=== PATIENT | male | born 1960 | race Hispanic/Latino ===

== ENCOUNTER 2020-12-31 11:28 | Emergency (ER) | payer OTHER ==
[~2020-12-31 11:28] MED LIST: CIMETIDINE400 MG PO; GABAPENTIN400 MG PO; LEVOTHYROXINE200 MCG PO; LISINOPRIL40 MG PO; METFORMIN HCL1000 MG PO; OMEPRAZOLE40 MG PO; SUCRALFATE1 GM PO; TOUJEO SQ
[2020-12-31 12:55] LABS: BASOPHILS % 0.5 % (0.0-1.0); EOSINOPHILS % 0.3 % (0.0-6.0); HEMATOCRIT 40.6 % (38.2-49.6); HEMOGLOBIN 13.2 g/dL (14.0-18.0); LYMPHOCYTES # (AUTO) 1.2 (1.0-3.2); LYMPHOCYTES % 20.8 % (18.0-39.1); MEAN CORPUSCULAR HEMOGLOBIN 27.4 pg (28-32); MEAN CORPUSCULAR HGB CONC 32.5 g/dL (31-35); MEAN CORPUSCULAR VOLUME 84.2 fL (81-99); MONOCYTES # (AUTO) 0.6 (0.2-0.8); MONOCYTES % 9.8 % (4.4-11.3); NEUTROPHILS % 68.3 % (38.7-80.0); PLATELET COUNT 159 x10e3/uL (140-360); RED BLOOD COUNT 4.82 x10e6/uL (4.3-5.7); RED CELL DISTRIBUTION WIDTH 14.5 % (11.7-14.4)
[2020-12-31 13:03] LABS: INR 1.05; PROTHROMBIN TIME 13.9 seconds (11.9-14.5)
[2020-12-31 13:04] LABS: PARTIAL THROMBOPLASTIN TIME 29.4 seconds (23.8-35.5)
[2020-12-31 13:14] LABS: ALBUMIN 1.8 g/dL (3.5-5.0); ALBUMIN/GLOBULIN RATIO 0.3 (0.8-2.0); ANION GAP 13.2 mmol/L (8-16); CALCIUM 7.9 mg/dL (8.4-10.2); CREATININE, SERUM 1.13 mg/dL (0.72-1.25); MAGNESIUM 1.6 MG/DL (1.3-2.1); POTASSIUM 4.2 mmol/L (3.5-5.1)
[2020-12-31 13:21] LABS: CREATINE KINASE MB 2.7 ng/mL (0-5.0)
[2020-12-31] MEDS ORDERED: SODIUM CHLORIDE 0.9% 500ML 500 ML IV ONE (14:30)
[2020-12-31] MEDS ORDERED: INSULIN REGULAR, HUMAN 100 UNIT/1 ML IV NR (14:30)
== END 2020-12-31 19:08 | disposition home or self-care (01) ==
LOC: ER 12:12
DX: R60.9 Edema, unspecified (principal); K74.60 Unspecified cirrhosis of liver; E88.09 Other disorders of plasma-protein metabolism, not elsewhere classified
CPT/HCPCS: 36415; 71045; 80053; 82550; 82553; 82948; 83735; 83880; 84484; 85025; 85610; 85730; 99284; J7040